=== PATIENT | female | born 1975 | race American Indian/Alaskan Native ===

== ENCOUNTER 2017-01-13 09:29 | Emergency (ER) | payer SELFPAY ==
[2017-01-13 09:51] VITALS: BP 157/91
[2017-01-13 10:58] LABS: Bilirubin,Urine NEG (Negative); Blood,Urine NEG (Negative); Ketones,Urine NEG (Negative); Leukocyte Esterase,Urine NEG (Negative); Mucus,Urine FEW /HPF; Nitrite,Urine NEG (Negative); Protein,Urine <15 mg/dL mg/dL (Negative); WBC,Urine < 1.0 /HPF (0.0-6.0)
--- NOTE | 2017-01-13 11:08 | Emergency Department Report ---
ED Female HPI - General Chief complaint: Urogenital-Female Stated complaint: POSS UTI Time Seen by Provider: 01/13/17 10:45 Source: patient Mode of arrival: Ambulatory Limitations: No Limitations - History of Present Illness Initial comments: Patient here complaining that she thinks she have a urinary tract infection. She is complaining of dark-colored urine this morning and. Complaining of burning urine. She is also complaining of frequent urination. Denies any blood in her urine. Denies any fever. Denies any nausea or vomiting or diarrhea. Denies any abdominal back pain. No vtce-nee-ihzqlor medication taken. Denies any vaginal bleeding. She denies any vaginal rash, redness or pain to external vaginal area. Denies concern for STDs. MD Complaint: dysuria, other (dark-colored urine) -: This morning Severity scale (0 -10): 0 Improves with: none Worsens with: none Are you Now?: No Last Menstrual Period: 12/18/16 EDC: 09/24/17 Associated Symptoms: dysuria. denies: vaginal discharge, vaginal bleeding, abdominal pain, nausea/vomiting, fever/chills, headaches, loss of appetite, hematuria, rash, seizure, shortness of breath, syncope, weakness - Related Data Sexually active: Yes Home Medications Medication Instructions Recorded Confirmed Last Taken No Known Home Medications [No 01/13/17 01/13/17 Unknown Reported Home Medications] Allergies Allergy/AdvReac Type Severity Reaction Status Date / Time No Known Allergies Allergy Unverified 01/13/17 09:47 ED Review of Systems ROS: Stated complaint: POSS UTI Other details as noted in HPI Comment: All other systems reviewed and negative Constitutional: denies: chills, fever Respiratory: no symptoms reported Cardiovascular: denies: chest pain, palpitations, edema, syncope Gastrointestinal: denies: abdominal pain, nausea, vomiting, diarrhea, constipation Genitourinary: urgency, frequency, other (dark-colored urine). denies: dysuria , hematuria, discharge, abnormal menses, dyspareunia Musculoskeletal: denies: back pain, arthralgia Skin: denies: rash Neurological: denies: headache, weakness, numbness, paresthesias, confusion, abnormal gait, vertigo ED Past Medical Hx - Past Medical History Previous Medical History?: Yes Additional medical history: obesity - Surgical History Past Surgical History?: Yes Hx Breast Surgery: Yes (breast reduction) Additional Surgical History: tubal ligation - Family History Family history: hypertension - Social History Smoking Status: Current Every Day Smoker Substance Use Type: None - Medications Home Medications: Home Medications Medication Instructions Recorded Confirmed Last Taken Type No Known Home Medications [No 01/13/17 01/13/17 Unknown History Reported Home Medications] ED Physical Exam - General Limitations: No Limitations General appearance: alert, in no apparent distress - Head Head exam: Present: atraumatic, normocephalic, normal inspection - Eye Eye exam: Present: normal appearance, PERRL, EOMI Pupils: Present: normal accommodation - Neck Neck exam: Present: normal inspection, full ROM. Absent: tenderness, meningismus, lymphadenopathy - Respiratory Respiratory exam: Present: normal lung sounds bilaterally. Absent: respiratory distress, chest wall tenderness - Cardiovascular Cardiovascular Exam: Present: regular rate, normal rhythm, normal heart sounds - GI/Abdominal GI/Abdominal exam: Present: soft, normal bowel sounds. Absent: distended, tenderness, guarding, rebound, rigid - Extremities Exam Extremities exam: Present: normal inspection, full ROM, normal capillary refill. Absent: tenderness, pedal edema, joint swelling, calf tenderness - Back Exam Back exam: Present: normal inspection, full ROM. Absent: tenderness, CVA tenderness (R), CVA tenderness (L), muscle spasm, paraspinal tenderness, vertebral tenderness, rash noted - Neurological Exam Neurological exam: Present: alert, oriented X3, normal gait, reflexes normal. Absent: motor sensory deficit - Psychiatric Psychiatric exam: Present: normal affect, normal mood - Skin Skin exam: Present: warm, dry, intact, normal color. Absent: rash ED Course Vital Signs 01/13/17 09:49 Temperature 98.5 F Pulse Rate 81 Respiratory 17 Rate Blood Pressure 157/91 O2 Sat by Pulse 100 Oximetry - Reevaluation(s) Reevaluation #1: 01/13/17 11:27 Patient had an uneventful stay ED Medical Decision Making - Lab Data Lab Results 01/13/17 Range/Units 10:27 Urine Color Yellow (Yellow) Urine Turbidity Clear (Clear) Urine pH 5.0 (5.0-7.0) Ur Specific [place] 1.026 (1.003-1.030) Urine Protein <15 mg/dl (Negative) mg/dL Urine Glucose (UA) Neg (Negative) mg/dL Urine Ketones Neg (Negative) mg/dL Urine Blood Neg (Negative) Urine Nitrite Neg (Negative) Ur Reducing Substances Not Reportable Urine Bilirubin Neg (Negative) Urine Ictotest Not Reportable Urine Urobilinogen 4.0 (<2.0) mg/dL Ur Leukocyte Esterase Neg (Negative) Urine WBC (Auto) < 1.0 (0.0-6.0) /HPF Urine RBC (Auto) 2.0 (0.0-6.0) /HPF U Epithel Cells (Auto) 2.0 (0-13.0) /HPF Urine Mucus Few /HPF Urine culture pending - Medical Decision Making Patient here reporting that she has dark-colored urine with urinary burning and frequency. She denies any increased thirst or history of diabetes. She does not have any concern for or STD. She presented to have her urine checked because she thought she has urinary tract infection. I discussed the patient that her urinalysis was normal with no signs of infection and cultures were sent off since she is complaining of burning urination and she will be called if there are any bacteria in her urine from culture. She voices understanding and I discussed with her she needs to increase her fluid intake. I discussed the patient that she needs to follow-up with her primary care physician if this continues and or if she does not have a primary care physician she can follow up with [facility]. Discharged home in stable condition Critical care attestation.: If time is entered above; I have spent that time in minutes in the direct care of this critically ill patient, excluding procedure time. ED Disposition Clinical Impression: Urinary frequency, Dysuria Disposition: DC-01 TO HOME OR SELFCARE Is pt being admited?: No Does the pt Need Aspirin: No Condition: Stable Instructions: Dysuria (ED) Additional Instructions: Your urinalysis showed that you do not have a urinary tract infection Since you have burning with urination your urine will be sent to be cultured and she will be called if there are any bacteria a urine. Follow up with the primary care physician in a few do not have one please follow -up with [facility] in 3-5 days. Referrals: [facility] [Outside] - 3-5 Days Forms: Work/School Release Form(ED)
== END 2017-01-13 11:37 | disposition home or self-care (01) ==
LOC: ED 09:29
DX: R30.0 Dysuria (principal); R35.0 Frequency of micturition; E66.9 Obesity, unspecified; F17.200 Nicotine dependence, unspecified, uncomplicated
CPT/HCPCS: 81001; 81025; 87086; 99283

== ENCOUNTER 2017-11-13 07:14 | Emergency (ER) | payer SELFPAY ==
[2017-11-13 07:45] VITALS: BP 156/81
[2017-11-13 08:29] LABS: Bilirubin,Urine NEG (Negative); Blood,Urine NEG (Negative); Color,Urine Yellow (Yellow); Hyaline Casts,Urine 1 /LPF; Protein,Urine <15 mg/dL mg/dL (Negative)
--- NOTE | 2017-11-13 09:12 | Emergency Department Report ---
ED Female HPI - General Chief complaint: Urogenital-Female Stated complaint: ABDOMINAL/URINATION PAIN Time Seen by Provider: 11/13/17 08:58 Source: patient Mode of arrival: Ambulatory Limitations: No Limitations - History of Present Illness Initial comments: 42-year-old [place] female comes in complaining of abdominal/pelvic pain and painful urination for one week. Patient denies any vaginal discharge no recent sexual encounter. Patient put she has no past medical history currently takes no medications and has no known drug allergies. Patient denies fever chills no nausea no vomiting. She does make to dysuria. MD Complaint: dysuria, pelvic pain -: week(s) (1) Severity scale (0 -10): 4 Quality: dull Consistency: constant Improves with: none Worsens with: urination Associated Symptoms: denies other symptoms - Related Data Sexually active: Yes Previous Rx's Medication Instructions Recorded Last Taken Type Nitrofurantoin Monohyd/M-Cryst 100 mg PO BID #14 capsule 11/13/17 Unknown Rx [Macrobid 100 mg Capsule] Phenazopyridine [Pyridium] 100 mg PO TID #9 tab 11/13/17 Unknown Rx Allergies Allergy/AdvReac Type Severity Reaction Status Date / Time No Known Allergies Allergy Unverified 01/13/17 09:47 ED Review of Systems ROS: Stated complaint: ABDOMINAL/URINATION PAIN Other details as noted in HPI Constitutional: denies: chills, fever Eyes: denies: eye pain, eye discharge, vision change ENT: denies: ear pain, throat pain Respiratory: denies: cough, shortness of breath, wheezing Cardiovascular: denies: chest pain, palpitations Endocrine: no symptoms reported Gastrointestinal: denies: abdominal pain, nausea, diarrhea Genitourinary: dysuria, frequency. denies: urgency, discharge Musculoskeletal: denies: back pain, joint swelling, arthralgia Skin: denies: rash, lesions Neurological: denies: headache, weakness, paresthesias Psychiatric: denies: anxiety, depression Hematological/Lymphatic: denies: easy bleeding, easy bruising ED Past Medical Hx - Past Medical History Previous Medical History?: Yes Additional medical history: obesity - Surgical History Past Surgical History?: Yes Hx Breast Surgery: Yes (breast reduction) Additional Surgical History: tubal ligation - Social History Smoking Status: Former Smoker Substance Use Type: Alcohol - Medications Home Medications: Home Medications Medication Instructions Recorded Confirmed Last Taken Type Nitrofurantoin Monohyd/M-Cryst 100 mg PO BID #14 capsule 11/13/17 Unknown Rx [Macrobid 100 mg Capsule] Phenazopyridine [Pyridium] 100 mg PO TID #9 tab 11/13/17 Unknown Rx ED Physical Exam - General Limitations: No Limitations General appearance: alert, in no apparent distress - Head Head exam: Present: atraumatic, normocephalic - Eye Eye exam: Present: normal appearance - ENT ENT exam: Present: mucous membranes moist - Neck Neck exam: Present: normal inspection - Respiratory Respiratory exam: Present: normal lung sounds bilaterally. Absent: respiratory distress - Cardiovascular Cardiovascular Exam: Present: regular rate, normal rhythm. Absent: systolic murmur, diastolic murmur, rubs, gallop - GI/Abdominal GI/Abdominal exam: Present: soft, normal bowel sounds - Extremities Exam Extremities exam: Present: normal inspection - Back Exam Back exam: Present: normal inspection - Neurological Exam Neurological exam: Present: alert, oriented X3 - Psychiatric Psychiatric exam: Present: normal affect, normal mood - Skin Skin exam: Present: warm, dry, intact, normal color. Absent: rash ED Course Vital Signs 11/13/17 07:41 Temperature 98.6 F Pulse Rate 75 Respiratory 18 Rate Blood Pressure 156/81 O2 Sat by Pulse 99 Oximetry ED Medical Decision Making - Medical Decision Making Patient has been evaluated by this provider in fast track. Discussed the patient appears that she has a urinary tract infection. Discussed with patient that I'll place her on Macrobid 100 mg twice a day for 7 days she can take Tylenol or Motrin. As well as I will give her prescription for Pyridium 100 mg by mouth 3 times a day 3 days. Patient verbalized understanding Critical care attestation.: If time is entered above; I have spent that time in minutes in the direct care of this critically ill patient, excluding procedure time. ED Disposition Clinical Impression: UTI (urinary tract infection) Qualifiers: Urinary tract infection type: site unspecified Hematuria presence: without hematuria Qualified Code(s): N39.0 - Urinary tract infection, site not specified Disposition: DC- TO HOME OR SELFCARE Is pt being admited?: No Does the pt Need Aspirin: No Condition: Stable Instructions: Urinary Tract Infection in Women (ED) Additional Instructions: Complete antibiotics as prescribed. Increase her fluid intake. Follow-up with the primary care provider if symptoms persist or gets worse. Prescriptions: Nitrofurantoin Monohyd/M-Cryst [Macrobid 100 mg Capsule] 100 mg PO BID #14 capsule Phenazopyridine [Pyridium] 100 mg PO TID #9 tab Referrals: PRIMARY CARE, [Primary Care Provider] - 3-5 Days Forms: Work/School Release Form(ED)
== END 2017-11-13 09:22 | disposition home or self-care (01) ==
LOC: ED 07:14
DX: N39.0 Urinary tract infection, site not specified (principal); Z98.51 Tubal ligation status; Z87.891 Personal history of nicotine dependence
CPT/HCPCS: 81001; 99283

== ENCOUNTER 2021-04-06 22:59 | Emergency (ER) | payer OTHER ==
[2021-04-07 01:13] VITALS: BP 151/100
--- NOTE | 2021-04-07 02:20 | XRay Report ---
RIGHT KNEE 2 VIEWS INDICATION / CLINICAL INFORMATION: knee and leg pain in the right COMPARISON: None available. FINDINGS: BONES / JOINT(S): No acute fracture or subluxation. Moderate 3 compartmental DJD greatest at the medi al compartment. SOFT TISSUES: No significant abnormality. ADDITIONAL FINDINGS: None. Signer Name: Gabe Samson MD Signed: 04/07/2021 2:16 AM Workstation Name: [id number]
--- NOTE | 2021-04-07 03:38 | Emergency Department Report ---
ED General Adult HPI - General Chief complaint: Extremity Injury, Lower Stated complaint: RT KNEE PAIN Time Seen by Provider: 04/07/21 03:30 Source: patient Mode of arrival: Ambulatory Limitations: No Limitations - History of Present Illness Initial comments: 45-year-old female patient with history of hyperlipidemia and BMI > 41 presents to the emergency department with complaints of right knee pain starting yesterday. No preceding fall, trauma, or injury. No history of similar symptoms. Pain is worse with standing and weightbearing. Denies fever, chills, paresthesias, numbness, weakness, hip pain, ankle pain, foot pain. Denies all other complaints at this time. - Related Data Previous Rx's Medication Instructions Recorded Last Taken Type Nitrofurantoin Monohyd/M-Cryst 100 mg PO BID #14 capsule 11/13/17 Unknown Rx [Macrobid 100 mg Capsule] Phenazopyridine [Pyridium] 100 mg PO TID #9 tab 11/13/17 Unknown Rx Naproxen 500 mg PO BID #20 tablet 04/07/21 Unknown Rx Allergies Allergy/AdvReac Type Severity Reaction Status Date / Time No Known Allergies Allergy Verified 04/07/21 01:13 ED Review of Systems ROS: Stated complaint: RT KNEE PAIN Other details as noted in HPI Other: GENERAL: Negative for fever. CARDIOVASCULAR: Negative for chest pain. PULMONARY: Negative for shortness of breath. GASTROINTESTINAL: Negative for abdominal pain. MUSCULOSKELETAL: Positive for knee pain. NEUROLOGICAL: Negative for headache. INTEGUMENTARY: Negative for rash. ED Past Medical Hx - Past Medical History Previous Medical History?: Yes Additional medical history: obesity, high cholesterol, hyperthyroidism - Surgical History Past Surgical History?: Yes Hx Breast Surgery: Yes (breast reduction) Additional Surgical History: tubal ligation - Social History Smoking Status: Never Smoker Substance Use Type: None - Medications Home Medications: Home Medications Medication Instructions Recorded Confirmed Last Taken Type Nitrofurantoin Monohyd/M-Cryst 100 mg PO BID #14 capsule 11/13/17 Unknown Rx [Macrobid 100 mg Capsule] Phenazopyridine [Pyridium] 100 mg PO TID #9 tab 11/13/17 Unknown Rx Naproxen 500 mg PO BID #20 tablet 04/07/21 Unknown Rx ED Physical Exam - General Limitations: No Limitations - Other Other exam information: General: Awake, appropriately interactive, no acute distress. Neck: Supple. Full range of motion intact. Cardiovascular: Normal peripheral perfusion. Pulmonary: No respiratory distress. Patient is speaking normally without use of accessory muscles. Skin: No apparent rashes or lesions. Neurological: No facial asymmetry. Speech is clear. Follows commands. Patient is alert and oriented. Musculoskeletal: Patient reports diffuse pain throughout the right knee without localized tenderness. No obvious deformity or dislocation. No obvious joint effusion. Full range of motion intact. No calf tenderness. No calf swelling. No overlying warmth or erythema. Distal neurovascular and motor/sensory function intact. Psych: Cooperative. Appropriate mood and affect. ED Course Vital Signs 04/07/21 01:10 Temperature 98.1 F Pulse Rate 74 Respiratory 18 Rate Blood Pressure 151/100 [Left] O2 Sat by Pulse 99 Oximetry ED Medical Decision Making - Radiology Data [facility] [address] [place] [address] XRay Report Signed Patient: MK YEAGER MR#: [id number] : 1975 Acct:[id number] Age/Sex: 45 / F ADM Date: 04/06/21 Loc: ED Attending Dr: Ordering Physician: SUNIL FAGAN MD Date of Service: 04/07/21 Procedure(s): XR knee 1-2V RT Accession Number(s): [id number] cc: SUNIL FAGAN MD Fluoro Time In Minutes: RIGHT KNEE 2 VIEWS INDICATION / CLINICAL INFORMATION: knee and leg pain in the right COMPARISON: None available. FINDINGS: BONES / JOINT(S): No acute fracture or subluxation. Moderate 3 compartmental DJD greatest at the medial compartment. SOFT TISSUES: No significant abnormality. ADDITIONAL FINDINGS: None. Signer Name: Gabe Samson MD Signed: 04/07/2021 2:16 AM Workstation Name: [id number] Transcribed By: ES Dictated By: Gabe Samson MD Electronically Authenticated By: Gabe Samson MD Signed Date/Time: 04/07/21215 DD/ 4 TD/TT: - Medical Decision Making Differential diagnosis including but not limited to: sprain, strain, fracture, contusion, dislocation, deep vein thrombosis, arterial occlusion, septic arthritis Patient presents to the emergency department with complaints of nontraumatic rig ht knee pain. She is afebrile, hemodynamically stable, no distress, ambulatory without assistance. No preceding fall, trauma, or injury. Pain is appropriately proportional to exam findings without findings to suggest septic arthritis. X-rays ordered by adjusto writer operator prior to medical screening examination showed degenerative changes without acute process. No clinical indication for further diagnostic work-up on an emergent basis at this time. Patient will be discharged home with appropriate analgesics and referred to orthopedics for close outpatient follow-up. Patient expressed understanding and is agreeable to plan of care. Strict return precautions provided. History, exam, diagnostic testing, and current condition do not suggest worrisome pathology to warrant further testing, continued ED treatment, admission, or surgical evaluation at this point. Given the low probability of a significant medical illness, it would be more likely to result in harm than benefit to perform further testing at this stage. Discussed findings, presumptive diagnosis, need for follow-up and specific signs/symptoms that should prompt immediate return to the emergency department. Instructions were explained in detail to the patient in addition to giving written discharge information. Patient expressed understanding and was given the opportunity to ask questions, all of which were satisfactorily answered prior to discharge home. Critical care attestation.: If time is entered above; I have spent that time in minutes in the direct care of this critically ill patient, excluding procedure time. ED Disposition Clinical Impression: Tricompartment degenerative joint disease of knee Qualifiers: Laterality: right Qualified Code(s): M17.11 - Unilateral primary osteoarthritis, right knee Disposition: 01 HOME / SELF CARE / HOMELESS Is pt being admited?: No Does the pt Need Aspirin: No Condition: Stable Instructions: Arthritis, [id number] Additional Instructions: Take Tylenol every 4 hours as needed for pain. Take Naprosyn twice daily with food as needed for pain. Apply heat to affected area as needed for pain. Follow-up with Dr. Pantoja, orthopedics, this week. Call today to schedule an appointment. Bring a copy of today's x-ray results with you to your follow-up appointment. Return to the emergency department immediately for new or worsening symptoms. Prescriptions: Naproxen 500 mg PO BID #20 tablet Referrals: EDGAR PANTOJA MD [Staff Physician] - 3-5 Days Time of Disposition: 03:38
== END 2021-04-07 03:40 | disposition home or self-care (01) ==
LOC: ED 22:59
DX: M17.11 Unilateral primary osteoarthritis, right knee (principal); E66.9 Obesity, unspecified; Z68.41 Body mass index [BMI] 40.0-44.9, adult; E05.90 Thyrotoxicosis, unspecified without thyrotoxic crisis or storm
CPT/HCPCS: 99283